=== PATIENT | male | born 1990 | race Caucasian/White ===

== ENCOUNTER 2017-06-12 15:28 | Emergency (ER) | payer SELFPAY ==
[~2017-06-12] VITALS: Ht 152.4 cm; Wt 97.5 kg
[~2017-06-12 15:28] MED LIST: ALPR2TAB7 PO; BUPR8TAB4 SL; CARI350T PO; CLON0.2T PO; ZOLP10TA2 PO
--- NOTE | 2017-06-12 16:24 | NUR ---
Patient refused to change to hospital gown, AOx4, listening comfortably by earphones in his personal electronic device, NAD
[2017-06-12] MEDS ORDERED: GENTAMICIN SULFATE INJ 80 MG in IV DEXTROSE 5% 100 ML IV ONE (16:30)
[2017-06-12] MEDS ORDERED: VANCOMYCIN IV 1,000 MG in IV DEXTROSE 5% 250 ML IV ONE (16:30)
[2017-06-12] MEDS ORDERED: CLINDAMYCIN PHOSPHATE IV 600 MG in IV DEXTROSE 5% 100 ML IV ONE (16:30)
[2017-06-12] MEDS ORDERED: IV NORMAL SALINE 1000 ML BAG IV ONE (16:30)
--- NOTE | 2017-06-12 16:46 | NUR ---
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
[2017-06-12] MEDS ORDERED: VANCOMYCIN IV 0 ML ONE (16:50)
[2017-06-12] MEDS ORDERED: GENTAMICIN SULFATE 80 MG/2 ML VIAL ONE (16:50)
[2017-06-12] MEDS ORDERED: CLINDAMYCIN PHOSPHATE 600 MG/4 ML VIAL ONE (16:50)
--- NOTE | 2017-06-12 16:53 | NUR ---
IV fluids (3 liters normal saline) & IV antibiotic meds (Vanco, genta & clindamicin) are at bedside, pending PICC line insertion
--- NOTE | 2017-06-12 17:56 | NUR ---
Patient ambulated to bathroom from room 1B with brisk steady gait, still for PICC line insertion
--- NOTE | 2017-06-12 18:46 | NUR ---
Patient refuses to be admitted, Dr Hilliard notified
[2017-06-12 18:50] LABS: BASOPHILS % (AUTO) 0.3 % (0.0-2.0); EOSINOPHILS # (AUTO) 0.2 K/uL (0.0-0.7); EOSINOPHILS % (AUTO) 1.7 % (0.0-7.0); HEMATOCRIT 37.8 % (36.7-47.1); HEMOGLOBIN 12.9 g/dL (12.5-16.3); LYMPHOCYTES # (AUTO) 2.3 K/uL (20.0-40.0); MEAN CORPUSCULAR HEMOGLOBIN 29.9 uug (23.8-33.4); MEAN CORPUSCULAR HGB CONC 34 g/dL (32.5-36.3); MEAN CORPUSCULAR VOLUME 87.7 fL (73.0-96.2); MONOCYTES # (AUTO) 0.4 K/uL (2.0-10.0); MONOCYTES % (AUTO) 4.8 % (0.0-11.0); NEUTROPHILS # (AUTO) 6.5 K/uL (1.8-8.9); NEUTROPHILS % (AUTO) 69.2 % (38.5-71.5); PLATELET COUNT (AUTO) 348 K/uL (152-348); RED BLOOD CELL COUNT(AUTO) 4.31 MIL/uL (4.06-5.63); WHITE BLOOD COUNT (AUTO) 9.4 K/uL (3.6-10.2)
[2017-06-12 19:01] LABS: BILIRUBIN,DIRECT 0.1 mg/dL (0.0-0.2); BILIRUBIN,TOTAL 0.3 mg/dL (0.2-1.0); POTASSIUM 3.4 mmol/L (3.5-5.1); TOTAL PROTEIN, SERUM 8.6 g/dL (6.4-8.2)
--- NOTE | 2017-06-12 19:14 | NUR ---
Assumed care of patient. No acute distress noted. All patient needs attended and met. Call light is within reach.
[2017-06-12] MEDS ORDERED: VANCOMYCIN IV 200 ML ONE (19:37)
--- NOTE | 2017-06-12 20:21 | NUR ---
Per ER MD, Dr Alejandra. Patient is ready to d/c once Vancomycin is complete. Gentamycin IVPB cancelled by Dr Alejandra.
--- NOTE | 2017-06-12 21:18 | NUR ---
Patient discharged to home in stable conditon. Written and verbal after care instructions given. Patient verbalizes understanding of instructions. Ambulated from ER with stable gait. All belongings with patient. IV access removed prior to d/c.
[2017-06-12 21:20] VITALS: BP 125/78
[2017-06-13] MEDS ORDERED: [UNRECOGNIZED DRUG - REMARK] (17:18)
== END 2017-06-12 21:23 | disposition home or self-care (01) ==
LOC: ER 15:29
DX: L03.116 Cellulitis of left lower limb (principal); F14.10 Cocaine abuse, uncomplicated; M72.6 Necrotizing fasciitis; Z88.1 Allergy status to other antibiotic agents; F17.210 Nicotine dependence, cigarettes, uncomplicated
CPT/HCPCS: 36415; 71045; 73551; 80048; 80076; 83605; 84484; 85025; 85730; 87040 ×2; 93005; 96365; 96366; 96367; 99285; A4663; J1580; J3370; J3490; J7030; J7060; 70030-TC

== ENCOUNTER 2017-06-13 16:42 | Emergency (ER) | payer SELFPAY ==
[~2017-06-13] VITALS: Ht 175.3 cm; Wt 97.5 kg
[2017-06-13] MEDS ORDERED: [UNRECOGNIZED DRUG - REMARK] (17:18)
--- NOTE | 2017-06-13 19:34 | NUR ---
AT BEDSIDE FOR MSE.
--- NOTE | 2017-06-13 19:41 | NUR ---
Patient discharged to home in stable conditon. Written and verbal after care instructions given. Patient verbalizes understanding of instructions. Ambulated w/ stable gait. No distress noted. All personal belongings taken w/ patient.
[2017-06-13 19:44] VITALS: BP 150/87
== END 2017-06-13 19:45 | disposition home or self-care (01) ==
LOC: ER 16:43
DX: L03.116 Cellulitis of left lower limb (principal); M72.6 Necrotizing fasciitis; F17.200 Nicotine dependence, unspecified, uncomplicated; Z88.1 Allergy status to other antibiotic agents
CPT/HCPCS: 99283; A4663